=== PATIENT | male | born 1930 | race Caucasian/White ===

== ENCOUNTER 2018-02-01 14:08 | Inpatient (IN) | payer OTHER ==
[~2018-02-01] VITALS: Ht 182.9 cm; Wt 81.6 kg
[2018-02-01 14:20] VITALS: BP 115/65
[2018-02-01] MEDS ORDERED: TRAZODONE 150150 M1 PO (14:27)
[2018-02-01 15:00] LABS: HEMATOCRIT 38.9 % (42.0-52.0); MCH 31.6 pg (26.0-34.0); MCHC 33.3 g/dL (28.0-37.0); MCV 94.7 fL (80.0-100.0); MPV 10.3 fl. (7.2-11.1); NUCLEATED RBCS 0 /100WBC; PLATELET COUNT* 122 thou/uL (150-400); RDW-CV 13.9 % (10.5-14.5); WBC 12.7 thou/uL (4.0-11.0)
[2018-02-01 15:05] LABS: CALCIUM 8.6 mg/dL (8.5-10.1); CREATININE 1.9 mg/dL (0.6-1.3); POTASSIUM 3.8 mmol/L (3.5-5.1)
[2018-02-01 15:07] LABS: APTT 31.3 Seconds (25.0-31.3); INR 1.2; PROTIME 11.9 Seconds (9.20-11.50)
[2018-02-01 15:10] LABS: ALBUMIN 3.3 g/dL (3.4-5.0); TOTAL BILIRUBIN 1.2 mg/dL (<0.1-1.0); TOTAL PROTEIN 6.9 g/dL (6.4-8.2)
[2018-02-01 15:23] LABS: ABSOLUTE MONOCYTES 0.9 thou/uL (0.0-1.2); ABSOLUTE NEUTROPHILS 10.8 thou/uL (1.6-8.1); PLATELET ESTIMATE ADEQUATE
[2018-02-01 15:37] LABS: INFLUENZA A ANTIGEN None Detected (None Detect); INFLUENZA B ANTIGEN None Detected (None Detect)
[2018-02-01] MEDS ORDERED: TERAZOSIN HCL10 MG PO (16:24)
[2018-02-01] MEDS ORDERED: VIAGRA50 MG PO (16:24)
[2018-02-01] MEDS ORDERED: ARICEPT10 M1 PO (16:25)
[2018-02-01 16:33] LABS: URINE BILIRUBIN NEGATIVE (Negative); URINE BLOOD NEGATIVE (Negative); URINE CLARITY CLEAR; URINE COLOR YELLOW; URINE GLUCOSE-RANDOM NEGATIVE (Negative); URINE KETONES TRACE (Negative); URINE LEUKOCYTES-REFLEX NEGATIVE (Negative); URINE NITRITE-REFLEX NEGATIVE (Negative); URINE PROTEIN 2+ (Negative); URINE UROBILINOGEN 0.2 E.U./dl (0.2-1.0)
[2018-02-01 16:48] LABS: SQUAMOUS NONE SEEN /LPF (0-3)
[2018-02-01 16:49] LABS: BACTERIA-REFLEX None Seen /HPF (None Seen); CASTS None Seen /LPF (None Seen); CRYSTALS None Seen /LPF (None Seen); URINE RBC None Seen /HPF (0-2); URINE WBC-REFLEX None Seen /HPF (0-5)
[2018-02-01 17:34] VITALS: BP 111/56
[2018-02-01 18:05] VITALS: BP 120/62
[2018-02-01 23:30] VITALS: BP 117/65
[2018-02-02 03:54] LABS: HEMATOCRIT 31.5 % (42.0-52.0); MCH 32.5 pg (26.0-34.0); MCV 95.5 fL (80.0-100.0); MPV 10.2 fl. (7.2-11.1); RBC 3.3 mil/uL (4.50-6.00); RDW-CV 13.7 % (10.5-14.5); WBC 10.5 thou/uL (4.0-11.0)
[2018-02-02 04:04] LABS: ALBUMIN 2.4 g/dL (3.4-5.0); CALCIUM 7.7 mg/dL (8.5-10.1); CREATININE 1.7 mg/dL (0.6-1.3); POTASSIUM 3.7 mmol/L (3.5-5.1); TOTAL BILIRUBIN 1.3 mg/dL (<0.1-1.0); TOTAL PROTEIN 4.8 g/dL (6.4-8.2)
[2018-02-02 04:05] LABS: HEMOGLOBIN 10.7 gm/dL (14.0-18.0)
[2018-02-02 09:30] VITALS: BP 95/51
[2018-02-02] MEDS ORDERED: LEVAQUIN 500 M500 M3 PO (10:37)
[2018-02-02 10:59] VITALS: BP 95/51
--- NOTE | 2018-02-02 17:44 | EKG ---
[place] [address] ELECTROCARDIOGRAM REPORT Name: RILEY ADAIR Room: [address] M.R.#: [id number] Admission: 02/01/18 Attend Phys: Cary Mcdonald MD Discharge: 02/02/18 Date of : [birth year] Report #: [id number] THIS REPORT FOR: //name// [facility] ED Test Date: 2018-02-01 Test Time: 15:34:42 Pat Name: RILEY ADAIR Department: Room: [facility] Gender: M Can Stacker: DAMIEN : 1930 Requested By: Tanisha Alonso Order Number: [id number] MD: Jessee Drake Measurements Intervals [place] Rate: 88 P: 61 [place]: 197 QRS: -39 QRSD: 94 T: 64 QT: 367 QTc: 444 Interpretive Statements Sinus rhythm Left axis deviation No previous ECG available for comparison Electronically Signed On 02-02-2018 17:44:33 HYDROLOGIC MODELER by Jessee Drake [email or web address] <ELECTRONICALLY SIGNED> By: Jessee Drake MD, [facility] 02/02/18 1744 [id number] 153 Jessee Drake MD, FACC /EPI
== END 2018-02-02 12:50 | disposition home or self-care (01) | DRG 682 ==
LOC: M.ERS 14:08 → M.TBA-ER 16:55 → M.3W 16:55
PROVIDERS: Nurse Practitioner Family; ADMIT Family Medicine
DX: N17.9 Acute kidney failure, unspecified (principal); R65.11 Systemic inflammatory response syndrome (SIRS) of non-infectious origin with acute organ dysfunction; E86.0 Dehydration; N40.0 Benign prostatic hyperplasia without lower urinary tract symptoms; Z79.899 Other long term (current) drug therapy